=== PATIENT | male | born 1945 | race Caucasian/White ===

== ENCOUNTER → 2016-12-08 | Outpatient (CLI) | payer OTHER, MEDICARE ==
[~2016-12-08] MED LIST: FLM4 PO; LPT/20 PO; LSN5 PO; METF750T PO; POTA4.25 PO; PRS5 PO
--- NOTE | 2016-12-08 09:36 | DIAGNOSTIC IMAGING REPORT ---
[facility] HISTORY: N20.0 Bilateral kidney [id number] COMPARISON: [facility] 12/03/2015. Abdomen and pelvis CT 01/08/2015. FINDINGS: The bowel gas pattern is unremarkable. There are no dilated loops of small bowel to suggest an obstruction. 5 mm linear calcification overlying the lower pole the right kidney. This remains stable. No left renal or ureteral calculi identified. No pneumoperitoneum or pneumatosis. IMPRESSION: Stable right-sided nephrolithiasis. No ureteral calculi. Electronically signed by: Wagner Palumbo M.D. 12/08/2016 9:34 AM Dictated Date/Time: 12/08/2016 9:32 AM
[2016-12-08 10:00] LABS: BLOOD UREA NITROGEN 16 mg/dl (7-18); BUN/CREATININE RATIO 14.8 (10-20)
== END | disposition home or self-care (01) ==
LOC: C.RAD 08:54
PROVIDERS: ATTEND Urology
DX: N20.0 Calculus of kidney (principal); R97.20 Elevated prostate specific antigen [PSA]; N40.1 Benign prostatic hyperplasia with lower urinary tract symptoms; C61 Malignant neoplasm of prostate; N43.3 Hydrocele, unspecified

== ENCOUNTER → 2017-06-28 | Outpatient (CLI) | payer OTHER, MEDICARE ==
[2017-06-28 09:59] LABS: BLOOD UREA NITROGEN 9 mg/dl (7-18); BUN/CREATININE RATIO 8.9 (10-20)
--- NOTE | 2017-07-06 10:37 | CODING QUERY MEDICAL NECESSITY ---
SUPPORTING DIAGNOSIS NEEDED Dr. Narayan, A supporting diagnosis is required for the test/procedure performed on this patient in order for us to be reimbursed by the patient's insurance. Please provide a supporting diagnosis for the following test/procedure listed below next to the test name along with your signature. *If there is no additional diagnosis for this patient that would support the following test/procedure please document that below next to the test/procedure. Test(s)/Procedure(s) that require a supporting diagnosis: * [id number] PSA DIAGNOSIS: DATE OF SERVICE: 06/28/17 Provider Signature: Date: Thank you Heriberto Maldonado [facility] Information Management Once completed, please kindly fax back to [phone] For questions please call [phone]
== END | disposition home or self-care (01) ==
LOC: C.LAB 08:21
PROVIDERS: ATTEND Urology
DX: N20.1 Calculus of ureter (principal); N40.1 Benign prostatic hyperplasia with lower urinary tract symptoms